=== PATIENT | female | born 1945 | race Caucasian/White ===

== ENCOUNTER 2025-03-20 13:31 | Emergency (ER) | payer MEDICARE, SELFPAY ==
--- OUTSIDE RECORDS SUMMARY | 2024-09-05 20:00 | XMS_ITS | Continuity of Care Document ---
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 Name Role Phone Aleksander Sanchez OD Unavailable Unavailable Allergies, Adverse Reactions, Alerts Substance Reaction Status Criticality No Known Allergies Active No Inform ation No Known Drug Allergies Active No I nformation Advance Directives Directive Yes / No Effective Date File Name No Information Encounters Encounter Description Practice Location Reason(s) For Visit Diagnoses Date Provider Providers Copied on Encounter [facility] , [address] [place] [address], [id number], [place] tel:[phone] [facility] Dry eye syndrome of bilateral lacrimal glandsOther specified retinal disordersVitreous degeneration, bilateral 5 Daniel Armijo. [facility] [place], [facility], [place]. tel:[phone] [facility] , [address] [place] [address], [id number], [place] tel:[phone] [facility] Dry eye syndrome of bilateral lacrimal glandsVitreous degeneration, bilateral 4 Daniel Armijo. [facility], [place], [address], [place]. tel:[phone] [facility] , [address] [place] [address], [id number], [place] tel:[phone] [facility] Dry eye syndrome of bilateral lacrimal glands 3 Daniel Armijo. [facility], [place], [address], [place]. tel: [phone] [facility] , [address] [place] [address], [id number], [place] tel:[phone] [facility] Vitreous degeneration, bilateralDry eye syndrome of bilateral lacrimal glands Sep-3 0-202 1 Sanchez Aleksander. [address], [place], [address], [place]. tel: [phone] [facility] , [address] [place] [address], [id number], [place] tel:[phone] [facility] Dry eye syndrome of bilateral lacrimal glandsVitreous degeneration, bilateral Oct-0 1-202 0 [facility] . [address] [place] [address], [id number], [place]. tel: [phone] [facility] , [address] [place] [address], [id number], [place] tel:[phone] [facility] Vitreous degeneration, bilateralDry eye syndrome of bilateral lacrimal glandsPresence of intraocular lens Oct-0 3-201 9 [facility] . [address] [place] [address], [id number], [place]. tel: [phone] [facility] , [address] [place] [address], [id number], [place] tel:[phone] [facility] Vitreous degeneration, bilateralPresence of intraocular lensOther secondary cataract, bilateral Sep-2 5-201 8 [facility] . [address] [place] [address], [id number], [place]. tel: [phone] [facility] , [address] [place] [address], [id number], [place] tel:[phone] [facility] Presence of intraocular lens Sep-1 9-201 8 [facility] . [address] [place] [address], [address], [place]. tel: [phone] [facility] , [address] [place] [address], [id number], [place] tel:[phone] [facility] Other secondary cataract, bilateralPresence of intraocular lensVitreous degeneration, bilateral Sep-0 6-201 8 [facility] . [address] [place] [address], [address], [place]. tel: [phone] [facility] , [address] [place] [address], [id number], [place] tel:[phone] [facility] Presence of intraocular lensVitreous degeneration, bilateralAge-relat ed nuclear cataract, right eye Apr-0 8-201 6 [facility] . [address] [place] [address], [address], [place]. tel:[phone] [facility] , [address] [place] [address], [id number], [place] tel:[phone] [facility] Age-related nuclear cataract, right eyePresence of intraocular lensVitreous degeneration, bilateral Mar-3 0-201 6 [facility] . [address] [place] [address], [address], [place]. tel: [phone] [facility] , [address] [place] [address], [id number], [place] tel:[phone] [facility] Age-related nuclear cataract, right eyeVitreous degeneration, bilateralPresence of intraocular lens Mar-2 2-201 6 [facility] . [address] [place] [address], [address], [place]. tel: [phone] [facility] , [address] [place] [address], [id number], [place] tel:[phone] [facility] Vitreous degeneration, bilateralPresence of intraocular lensAge-related nuclear cataract, right eye Mar-1 6-201 6 [facility] . [address] [place] [address], [address], [place]. tel: [phone] [facility] , [address] [place] [address], [id number], [place] tel:[phone] [facility] Vitreous degeneration, bilateralAge-relat ed nuclear cataract, bilateral Mar-1 0-201 6 [facility] . [address] [place], [address], [place]. tel: [phone] [facility] , [address] [place], [place], [id number], [place] tel:[phone] [facility] Vitreous Detachment DegeneratVitreous Floaters Opacities 5-201 0 [facility] . [address] [place], [address], [place]. tel: [phone] Family History Family Member Type Diagnosis Age At Onset Father Biological Problem (finding) Fhx of diabetes me llitus Payers Payer name Insurance type Covered green party ID Authoriza tion(s) No Information Social History Type Description Quantity Date Captured Comments Alcohol Use Details Unknown Caffeine Use Details Unknown Tobacco Use Status Former smoker Smoking Status Former smoker Non-Smoking Tobacco Use Details : No Details Available : No Details Available Sex Female Chief Complaint And Reason For Visit No Information Reason For Referral Reason For Referral No Information History Of Present Illness Encounter Date Complaint History Of Prese nt Illness No Information Functional Status Date Functional Assessmen t No Information Instructions Date Instruction Additional Infor mai 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 Impression/Plan Related to [employer] revealed dry eye syndrome secondary to tear deficiencies. Impression/Plan Related to [employer] revealed a posterior vitreous detachment. [facility] syndrome secondary to tear deficiencies. Impression/Plan Related to [employer] revealed dry eye syndrome secondary to tear deficiencies. Impression/Plan [facility] revealed dry eye syndrome secondary to tear deficiencies. Impression/Plan [facility] revealed a posterior vitreous detachment. Impression/Plan Related to Diagn osis Description: PVD (posterior vitreous detachment), both eyes \nDiagnosis Code: 379.21 Impression/Plan Related to Diagn osis Description: DRY EYE SYNDROME OF BOTH LACRIMAL GLANDS \nDiagnosis Code: 375.15 Impression/Plan Related to Diagn osis Description: PVD (posterior vitreous detachment), both eyes \nDiagnosis Code: 379.21 Impression/Plan Related to Diagn osis Description: DRY EYE SYNDROME OF BOTH LACRIMAL GLANDS \nDiagnosis Code: 375.15 Impression/Plan Related to Diagn osis Description: BILATERAL PSEUDOPHAKIA \nDiagnosis Code: Z96.1 Impression/Plan Related to Diagn osis Description: PSEUDOPHAKIA OF RIGHT EYE \nDiagnosis Code: V43.1 Impression/Plan Related to Diagn osis Description: PVD (posterior vitreous detachment), both eyes \nDiagnosis Code: 379.21 Impression/Plan Related to Diagn osis Description: Posterior capsular opacification visually significant of both eyes \nDiagnosis Code: 366.53 Impression/Plan Related to Diagn osis Description: BILATERAL PSEUDOPHAKIA \nDiagnosis Code: Z96.1 Impression/Plan Related to Diagn osis Description: Bilateral pseudophakia \nDiagnosis Code: V43.1 Impression/Plan Related to Diagn osis Description: PVD (posterior vitreous detachment), both eyes \nDiagnosis Code: 379.21 Impression/Plan Related to Diagn osis Description: Posterior capsular opacification visually significant of both eyes \nDiagnosis Code: 366.53 Impression/Plan Related to Diagn osis Description: PVD (posterior vitreous detachment), both eyes \nDiagnosis Code: 379.21 Impression/Plan Related to Diagn osis Description: Age-related nuclear cataract of right eye \nDiagnosis Code: 366.16 Impression/Plan Related to Diagn osis Description: Bilateral pseudophakia \nDiagnosis Code: V43.1 Impression/Plan Related to Diagn osis Description: PSEUDOPHAKIA OF RIGHT EYE \nDiagnosis Code: V43.1 Impression/Plan Related to Diagn osis Description: PVD (posterior vitreous detachment), both eyes \nDiagnosis Code: 379.21 Impression/Plan Related to Diagn osis Description: Age-related nuclear cataract of right eye \nDiagnosis Code: 366.16 Impression/Plan Related to Diagn osis Description: PVD (posterior vitreous detachment), both eyes \nDiagnosis Code: 379.21 Impression/Plan Related to Diagn osis Description: Age-related nuclear cataract of right eye \nDiagnosis Code: 366.16 Impression/Plan Related to Diagn osis Description: PSEUDOPHAKIA OF LEFT EYE \nDiagnosis Code: V43.1 Impression/Plan Related to Diagn osis Description: PVD (posterior vitreous detachment), both eyes \nDiagnosis Code: 379.21 Impression/Plan Related to Diagn osis Description: Age-related nuclear cataract of right eye \nDiagnosis Code: 366.16 Impression/Plan Related to Diagn osis Description: PSEUDOPHAKIA OF LEFT EYE \nDiagnosis Code: V43.1 Impression/Plan Related to Diagn osis Description: PVD (posterior vitreous detachment), both eyes \nDiagnosis Code: 379.21 Impression/Plan Related to Diagn osis Description: AGE-RELATED NUCLEAR CATARACT OF BOTH EYES \nDiagnosis Code: 366.16 Impression/Plan Related to Diagn osis Description: OPACITY, VITREOUS NEC OS \nDiagnosis Code: 379.24 Impression/Plan Related to Diagn osis Description: DEGENERATION, VITREOUS BODY OD \nDiagnosis Code: 379.21 Assessments Type Assessment Date No Information Patient Care Teams Name Effective Dates (start - stop) Status Members No Information
[2025-03-20 13:39] VITALS: BP 136/93; PULSE 108; TEMP 36.7; O2SAT 96; BMI 29.2
[2025-03-20] MEDS: 0.9 % SODIUM CHLORIDE 1,000 ML 1000 ML IV (14:12)
[2025-03-20 14:13] LABS: Hematocrit 42.8 % (36.0-48.0); Hemoglobin 14.5 g/dL (12.0-16.0); Immature Granulocytes Abs Auto 0.03 10^3/uL (0.00-0.03); Immature Granulocytes Pct Auto 0.4 % (0.0-0.5); Lymphocytes Absolute Auto 2.3 10^3/uL (1.2-3.8); Mean Corpuscular HGB Conc 33.9 g/dL (29.9-35.2); Mean Corpuscular Hemoglobin 30.1 pg (26.7-34.0); Mean Corpuscular Volume 89.0 fL (81.0-99.0); Platelet Count 216 10^3/uL (150-450); Red Blood Count 4.81 10^6/uL (4.20-5.40); White Blood Count 7.9 10^3/uL (4.0-11.0)
[2025-03-20 14:26] LABS: Alanine Aminotransferase 74 U/L (14-59); Albumin Globulin Ratio 1.1; Albumin Level 3.7 g/dL (3.4-5.0); Alkaline Phosphatase 72 U/L (46-116); Anion Gap 11.8; Aspartate Amino Transferase 44 U/L (15-37); Blood Urea Nitrogen 14.0 mg/dL (7.0-18.0); Calcium 9.0 mg/dL (8.5-10.1); Carbon Dioxide 28.8 mmol/L (21.0-32.0); Chloride 104 mmol/L (98-107); Estimated GFR (African America >60 (>=60 mL/min/1.73m^2); Estimated GFR (Non-African Ame 59 (>=60 mL/min/1.73m^2); Globulin 3.5 g/dL; Glucose 111 mg/dL (74-106); Potassium 3.6 mmol/L (3.5-5.1); Sodium 141 mmol/L (136-145); Total Protein 7.2 g/dL (6.4-8.2)
[2025-03-20 14:50] VITALS: BP 142/62; PULSE 84; O2SAT 97
--- NOTE | 2025-03-20 14:56 | ED.GENADUL1 ---
HPI HPI - General Adult General Chief complaint: Nausea/Vomiting/Diarrhea Stated complaint: diarrhea Time Seen by Provider: 03/20/25 13:43 Source: patient Mode of arrival: walk-in Limitations: no limitations History of Present Illness HPI narrative: Patient is 79 years old female coming to the ER with 3 days history of diarrhea, no nausea no vomiting but the patient had at least 3-4 bouts of diarrhea daily. No fever or chills and the patient have some abdominal cramping usually before she goes to the bathroom Related Data Previous Rx's ?Medication ?Instructions ?Recorded dicyclomine 20 mg tablet 20 mg PO TID PRN abdominal pain 03/20/25 #20 tabs Allergies Allergy/AdvReac Type Severity Reaction Status Date / Time No Known Drug Allergies Allergy Verified 03/20/25 13:39 Opioid HPI Opioid Management Most Recent Opioid Data: Last Pain Scale 8 Today, 13:39 Review of Systems ROS Status of ROS 10 or more systems reviewed and unremarkable except as noted in history and below PFSH PFSH Social History Little interest or pleasure in doing things: not at all Feeling down, depressed, or hopeless: not at all Exam Narrative Exam Narrative: Nurses notes and vital signs reviewed and patient is not hypoxic. General: Well-appearing and in no apparent distress. Skin: Warm, dry, no pallor noted. No rash. Head: Normocephalic, atraumatic. Neck: Supple, non-tender. Eye: Pupils are equal, round and EOMI. No scleral icterus. Ears, Nose, Mouth, and Throat: TM are clear, no nasal mucosal hypertrophy. Oral mucosa is moist, no posterior oropharynx erythema, uvula is mid-line Cardiovascular: Regular Rate and Rhythm without murmur, gallop or rub. Respiratory: No accessory muscle use or respiratory distress. Lungs are clear to auscultation, no wheezing, rales or rhonchi Chest Wall: no tenderness Back: No midline thoracic or lumbar vertebral tenderness. No CVA tenderness Musculoskeletal: normal ROM, no calf or popliteal tenderness, no lower extremity edema/swelling GI: Abdomen is soft, non-distended. Normal bowel sounds. No masses appreciated. No tenderness to palpation. No rebound, guarding, or rigidity noted. Neurological: A&O x4. No cranial nerve dysfunction observed Constitutional Vital Signs, click to edit/add: Last Vital Signs Temp 98.0 F 03/20/25 13:39 Pulse 84 03/20/25 14:50 Resp 18 03/20/25 14:50 BP 142/62 H 03/20/25 14:50 Pulse Ox 97 03/20/25 14:50 O2 Del Method Room Air 03/20/25 13:39 Course Vital Signs Vital signs: Vital Signs Temperature 98.0 F 03/20/25 13:39 Pulse Rate 108 H 03/20/25 13:39 Respiratory Rate 18 03/20/25 13:39 Blood Pressure 136/93 H 03/20/25 13:39 Pulse Oximetry 96 03/20/25 13:39 Oxygen Delivery Method Room Air 03/20/25 13:39 Temperature 98.0 F 03/20/25 13:39 Pulse Rate 84 03/20/25 14:50 Respiratory Rate 18 03/20/25 14:50 Blood Pressure 142/62 H 03/20/25 14:50 Pulse Oximetry 97 03/20/25 14:50 Oxygen Delivery Method Room Air 03/20/25 13:39 Medical Decision Making [facility] Narrative Medical decision making narrative: The patient CBC and chemistry showed no acute pathology except for mild elevation of the AST and ALT which could be reactive The patient was provided with 1 L of fluid after which she was feeling much better she was discharged home with instruction that she is just to continue supportive care for the next few days Also educated about alarming symptoms that would bring her back in case of any new symptoms including fever chills and blood in stool The patient was provided 1 dose of loperamide here in the ER and discharged home with Bentyl as needed for pain The patient is to follow up with primary care physician in next 2-3 days or to return to the emergency department should any of the signs or symptoms worsen or new symptoms develop. The patient agrees with the following Diagnosis and Treatment plan and the patient will be discharged home. Lab Data Labs: Lab Results 03/20/25 Range/Units 14:00 WBC 7.9 (4.0-11.0) 10^3/uL RBC 4.81 (4.20-5.40) 10^6/uL Hgb 14.5 (12.0-16.0) g/dL Hct 42.8 (36.0-48.0) % MCV 89.0 (81.0-99.0) fL MCH 30.1 (26.7-34.0) pg MCHC 33.9 (29.9-35.2) g/dL RDW 13.7 (11.0-15.0) % Plt Count 216 (150-450) 10^3/uL MPV 9.5 (9.5-13.5) fL Neut % (Auto) 61.9 (43.0-75.0) % Lymph % (Auto) 29.6 (20.5-60.0) % [place] % (Auto) 7.1 (1.7-12.0) % Eos % (Auto) 0.6 L (0.9-7.0) % Baso % (Auto) 0.4 (0.2-2.0) % Neut # (Auto) 4.9 (1.4-6.5) 10^3/uL Lymph # (Auto) 2.3 (1.2-3.8) 10^3/uL [place] # (Auto) 0.6 (0.3-0.8) 10^3/uL Eos # (Auto) 0.1 (0.0-0.7) 10^3/uL Baso # (Auto) 0.0 (0.0-0.1) 10^3/uL Abs Immat Gran (auto) 0.03 (0.00-0.03) 10^3/uL Imm/Tot Granulo (auto) 0.4 (0.0-0.5) % Sodium 141 (136-145) mmol/L Potassium 3.6 (3.5-5.1) mmol/L Chloride 104 (98-107) mmol/L Carbon Dioxide 28.8 (21.0-32.0) mmol/L Anion Gap 11.8 BUN 14.0 (7.0-18.0) mg/dL Creatinine 0.92 (0.55-1.02) mg/dL Est GFR ( Amer) >60 (>=60 mL/min/1.73m^2) Est GFR (Non-Af Amer) 59 L (>=60 mL/min/1.73m^2) BUN/Creatinine Ratio 15.2 Glucose 111 H (74-106) mg/dL Calcium 9.0 (8.5-10.1) mg/dL Total Bilirubin 0.7 (0.2-1.0) mg/dL AST 44 H (15-37) U/L ALT 74 H (14-59) U/L Alkaline Phosphatase 72 (46-116) U/L Total Protein 7.2 (6.4-8.2) g/dL Albumin 3.7 (3.4-5.0) g/dL Globulin 3.5 g/dL Albumin/Globulin Ratio 1.1 Discharge Plan Discharge Chief Complaint: Nausea/Vomiting/Diarrhea Clinical Impression: Gastroenteritis Patient Disposition: Home, Self-Care Time of Disposition Decision: 15:03 Condition: Good Prescriptions / Home Meds: New dicyclomine 20 mg tablet 20 mg PO TID PRN (Reason: abdominal pain) Qty: 20 0RF Print Language: Setswana Instructions: Gastroenteritis (ED) Referrals: Physician,Non-Staff, MD [Primary Care Provider] - 1 week Discharge Date/Time: 03/20/25 15:31
[2025-03-20] MEDS: LOPERAMIDE HCL 2 MG CAPSULE 4 MG PO (15:08)
[2025-03-20] MEDS: DICYCLOMINE HCL 10 MG CAPSULE 20 MG PO (15:08)
== END 2025-03-20 15:31 | disposition home or self-care (01) ==
PROVIDERS: Emergency Provider Emergency Medicine
DX: K52.9 Noninfective gastroenteritis and colitis, unspecified (principal)
CPT/HCPCS: 36415; 80053; 85025; 96360; 99285